=== PATIENT | female | born 1945 | race Caucasian/White ===

== ENCOUNTER 2022-06-30 15:40 | Inpatient (IN) | payer MEDICARE, OTHER ==
[~2022-06-30] VITALS: Ht 167.6 cm; Wt 119.3 kg
--- NOTE | 2022-06-30 16:00 | NUR ---
Notified [facility] to call in mid-line or PICC line nurse to place line on pt. Pt is very hard stick.
--- NOTE | 2022-06-30 16:08 | NUR ---
Patient moved to ER bed 1B with RA 105, patient was placed on continuous heart, BP & SpO2 monitors with alarms set, on & audible.
[2022-06-30] MEDS ORDERED: ZINC30OI4 TOP (16:49)
[2022-06-30] MEDS ORDERED: FLUC200T8 PO (16:49)
[2022-06-30] MEDS ORDERED: CIPR-262 PO (16:49)
[2022-06-30] MEDS ORDERED: METO25TA6 PO (16:50)
[2022-06-30] MEDS ORDERED: QUET200T PO (16:50)
[2022-06-30] MEDS ORDERED: ESCI10TA PO (16:50)
[2022-06-30] MEDS ORDERED: APIX5TAB PO (16:51)
[2022-06-30] MEDS ORDERED: LEVE500T9 PO (16:51)
[2022-06-30] MEDS ORDERED: LEVO125C4 PO (16:51)
[2022-06-30] MEDS ORDERED: IPRA3AMP22 NEB (16:53)
[2022-06-30 16:58] LABS: HEMATOCRIT 38.1 % (31.2-41.9); MEAN CORPUSCULAR HEMOGLOBIN 29.6 uug (24.7-32.8); MEAN CORPUSCULAR VOLUME 94.4 fL (75.5-95.3); PLATELET COUNT (AUTO) 87 K/uL (179-408)
[2022-06-30] MEDS ORDERED: levoFLOXacin 750 MG/D5W 150 ML PIGGYBACK IV ONE (17:00)
[2022-06-30 17:03] LABS: CHLORIDE 104 mmol/L (98-107); CREATININE 0.6 mg/dL (0.6-1.3); GLUCOSE 95 mg/dL (74-106); UREA NITROGEN, BLOOD 9 mg/dL (7-18)
[2022-06-30 17:14] LABS: CARBON DIOXIDE 43 mmol/L (21-32)
[2022-06-30 17:16] LABS: ALANINE AMINOTRANSFERASE < 6 U/L (14-59); ALKALINE PHOSPHATASE 61 U/L (50-136); ASPARTATE AMINOTRANSFERASE 12 U/L (15-37); BILIRUBIN,DIRECT < 0.1 mg/dL (0.0-0.2); BILIRUBIN,TOTAL 0.3 mg/dL (0.2-1.0); TOTAL PROTEIN, SERUM 5.9 g/dL (6.4-8.2)
[2022-06-30 17:57] LABS: BAND % (MANUAL) 1 % (0-10); EOSINOPHILS % (MANUAL) 1 % (0-8); LYMPHOCYTES % (MANUAL) 17 % (20-40); MONOCYTES % (MANUAL) 8 % (2-10); NEUTROPHILS % (MANUAL) 73 % (42-75)
[2022-06-30] MEDS ORDERED: IV NS 1000 ML 1,000 ML IV ONE (18:30)
--- NOTE | 2022-06-30 18:31 | NUR ---
Called report to EMERSON Mac.
[2022-06-30] MEDS ORDERED: levoFLOXacin 750MG/D5W 150 ML IV ONE (18:33)
--- NOTE | 2022-06-30 20:36 | NUR ---
called for bed. Patient will be admitted to [facility] room 316
[2022-06-30 20:38] LABS: *BILIRUBIN,URIN NEGATIVE (NEGATIVE); *BLOOD, URINE NEGATIVE (NEGATIVE); *CLARITY,URINE CLEAR (CLEAR); *COLOR,URINE YELLOW (YELLOW); *KETONES,URINE TRACE (NEGATIVE); *UROBILINOGEN,URINE 0.2 E.U./dl (NORMAL); LEUKOCYTE ESTERASE ,URINE TRACE (NEGATIVE); NITRITE, URINE NEGATIVE (NEGATIVE); UGLUCOSE NEGATIVE (NEGATIVE)
[2022-06-30 20:49] LABS: BACTERIA,URINE NONE SEEN /HPF (NONE SEEN); RBC,URINE NONE SEEN /HPF (0-3); SQUAMOUS EPITHELIAL CELL,UR FEW /HPF (NONE SEEN)
--- NOTE | 2022-06-30 21:30 | NUR ---
report given to Trisha NORMAN
[2022-06-30] MEDS ORDERED: ACETAMINOPHEN 325 MG TABLET PO PRN (22:15)
[2022-06-30 22:23] VITALS: BP 113/69
[2022-06-30] MEDS: QUETIAPINE FUMARATE 200 MG TABLET PO SCH (22:29)
[2022-06-30] MEDS: levETIRAcetam 500 MG TABLET PO SCH (22:29)
--- NOTE | 2022-06-30 22:30 | NUR ---
Admitted to Tele diagnosed with Pneumonia/sepsis under Dr. Marley. AAOx1, confused and forgetful. Pt screams when being touched. Complaints of generalized pain. Mostly on her neck and left shoulder. Bed bound. Unable to move any extremity. She has left eye blindness. On 3LPM sating at 96%. IV on R UA ML intact and patent. Trevizo cath draining well. All needs attended. Seizure and aspiration precaution observed.
[2022-06-30] MEDS: MORPHINE SULFATE 2 MG/1 ML DISP.SYRIN IV PRN (23:30)
--- NOTE | 2022-06-30 23:41 | NUR ---
Pt. admitted to TELE room 316 , under care of Dr. Marley Belongs List completed
[2022-07-01] VITALS: BP 103/66
[2022-07-01 04:13] VITALS: BP 119/63
[2022-07-01] MEDS: MORPHINE SULFATE 2 MG/1 ML DISP.SYRIN IV PRN ×2 (05:08→18:43)
[2022-07-01] MEDS: LEVOTHYROXINE SODIUM 125 MCG TABLET PO SCH (06:17)
[2022-07-01] MEDS ORDERED: PANTOPRAZOLE SODIUM 40 MG TABLET.DR PO SCH (07:00)
[2022-07-01 07:20] LABS: HEMATOCRIT 36.9 % (31.2-41.9); MEAN CORPUSCULAR HEMOGLOBIN 29.3 uug (24.7-32.8); MEAN CORPUSCULAR VOLUME 93.7 fL (75.5-95.3); PLATELET COUNT (AUTO) 101 K/uL (179-408)
[2022-07-01 08:40] LABS: CHLORIDE 106 mmol/L (98-107); POTASSIUM 3.6 mmol/L (3.5-5.1)
[2022-07-01 08:41] LABS: ALKALINE PHOSPHATASE 59 U/L (50-136); BILIRUBIN,TOTAL 0.3 mg/dL (0.2-1.0); PHOSPHOROUS 2.2 mg/dL (2.5-4.9); TOTAL PROTEIN, SERUM 5.6 g/dL (6.4-8.2)
[2022-07-01 08:42] LABS: ALANINE AMINOTRANSFERASE < 6 U/L (14-59); ASPARTATE AMINOTRANSFERASE 11 U/L (15-37); MAGNESIUM 2.1 mg/dL (1.8-2.4)
[2022-07-01 08:43] LABS: UREA NITROGEN, BLOOD 6 mg/dL (7-18)
[2022-07-01 08:44] LABS: CREATININE 0.4 mg/dL (0.6-1.3); GLUCOSE 85 mg/dL (74-106)
[2022-07-01 08:45] LABS: CARBON DIOXIDE 40 mmol/L (21-32)
[2022-07-01] MEDS: APIXABAN 5 MG TABLET PO SCH ×3 (09:00→20:40)
[2022-07-01] MEDS ORDERED: METOPROLOL TARTRATE 25 MG TABLET PO SCH (09:00)
[2022-07-01] MEDS: REMEDY ESSENTIAL ZINC PASTE 113 GM TP SCH ×2 (09:00→20:40)
[2022-07-01] MEDS ORDERED: LEVOTHYROXINE SODIUM 125 MCG PO SCH (09:00)
[2022-07-01 09:07] LABS: CHOLESTEROL 118 mg/dL (<200); HDL CHOLESTEROL 32 mg/dL (40-60); TRIGLYCERIDES 79 MG/DL (30-150)
[2022-07-01 09:32] LABS: THYROID STIMULATING HORMONE 0.476 mIU/mL (0.358-3.740)
[2022-07-01] MEDS: levETIRAcetam 500 MG TABLET PO SCH ×2 (10:02→20:39)
[2022-07-01] MEDS: ESCITALOPRAM OXALATE 10 MG TABLET PO SCH (10:02)
[2022-07-01 12:00] VITALS: BP 103/65
--- NOTE | 2022-07-01 12:23 | NUR ---
WOUND CARE CONSULT: PT SLEEPING SOUNDLY AT THIS TIME. REVIEWED CHART, NURSING DOCUMENTATION AND PHOTOS WHICH INDICATE RASHES AND SACRAL INTACT DEEP TISSUE INJURY, PRESENT ON ADMISSION. RECOMMENDATIONS MADE FOR SKIN PROTECTION. DISCUSSED WITH NURSING STAFF. MD IN AGREEMENT WITH PLAN OF CARE.
[2022-07-01 15:42] VITALS: BP 132/79
[2022-07-01] MEDS ORDERED: NEUTRA PHOS PACKET PO ONE (16:30)
[2022-07-01] MEDS ORDERED: FUROSEMIDE 20 MG/2 ML VIAL IV ONE (17:15)
[2022-07-01] MEDS: CLOTRIMAZOLE 1% CREAM 30 GM TUBE TOP SCH (17:16)
[2022-07-01] MEDS ORDERED: levoFLOXacin 500 MG/D5W 500 MG in PREMIXED 1 EACH IV SCH (18:00)
[2022-07-01 20:00] VITALS: BP 125/42
[2022-07-01] MEDS: QUETIAPINE FUMARATE 200 MG TABLET PO SCH (20:39)
[2022-07-01] MEDS: ALPRAZOLAM 0.5 MG TABLET PO PRN (22:34)
--- NOTE | 2022-07-01 22:35 | NUR ---
PLACED PATIENT ON CPAP 10 PER MD ORDERS. NO SOB NOTED AT THIS TIME. PATIENT SAYS SHE IS COMFORTABLE WITH MASK AND SETTINGS. WILL CONTINUE TO MONITOR.
[2022-07-02] VITALS: BP 116/78
[2022-07-02 04:00] VITALS: BP 122/80
[2022-07-02] MEDS: MORPHINE SULFATE 2 MG/1 ML DISP.SYRIN IV PRN ×2 (04:31→18:10)
[2022-07-02] MEDS: LEVOTHYROXINE SODIUM 125 MCG TABLET PO SCH (06:57)
[2022-07-02 07:08] LABS: HEMATOCRIT 36.9 % (31.2-41.9); MEAN CORPUSCULAR HEMOGLOBIN 29.8 uug (24.7-32.8); MEAN CORPUSCULAR VOLUME 91.7 fL (75.5-95.3); PLATELET COUNT (AUTO) 114 K/uL (179-408)
[2022-07-02 07:29] LABS: CREATININE 0.8 mg/dL (0.6-1.3); MAGNESIUM 1.8 mg/dL (1.8-2.4); POTASSIUM 3.2 mmol/L (3.5-5.1)
[2022-07-02] MEDS: levETIRAcetam 500 MG TABLET PO SCH ×2 (09:05→21:06)
[2022-07-02] MEDS: FAMOTIDINE 20 MG TABLET PO SCH (09:05)
[2022-07-02] MEDS: ESCITALOPRAM OXALATE 10 MG TABLET PO SCH (09:05)
[2022-07-02] MEDS: APIXABAN 5 MG TABLET PO SCH ×2 (09:06→21:10)
[2022-07-02] MEDS ORDERED: POTASSIUM CHLORIDE 20 MEQ TAB.PRT.SR PO ONE (09:15)
[2022-07-02] MEDS: REMEDY ESSENTIAL ZINC PASTE 113 GM TP SCH ×2 (09:17→21:11)
[2022-07-02] MEDS: CLOTRIMAZOLE 1% CREAM 30 GM TUBE TOP SCH ×2 (09:17→15:22)
[2022-07-02 09:19] LABS: ABG BASE EXCESS 11.4 mmol/L; ABG HCO3 38.1 mmol/L; ABG PCO2 59.1 mmHg (35.0-45.0); ABG PH 7.427 (7.350-7.450); ABG PO2 72.4 mmHg (75.0-100.0); ABG SITE RIGHT RADIAL; ABG TOTAL HEMOGLOBIN 13.4 G/dL (12.0-16.0); COHb 0.7 % (0.5-1.5); MetHb 0.1 % (0.0-1.5); O2Hb 94.4 % (94.0-97.0)
--- NOTE | 2022-07-02 11:19 | NUR ---
WOUND CARE CONSULT: PT PRESENTS WITH RASHES AND SACRAL INTACT DEEP TISSUE INJURY, PRESENT ON ADMISSION. PT IS IMMOBILE. COURTNEY MEHTA NOTED. RECOMMENDATIONS MADE FOR SKIN PROTECTION. DISCUSSED WITH NURSING STAFF. FIRST STEP LOW AIRLOSS MATTRESS IS ON ORDER. MD IN AGREEMENT WITH PLAN OF CARE. Addendum: 07/02/22 at 1120 by CHRISTINE VAZQUEZ RN Amended: Links added.
[2022-07-02] MEDS: FUROSEMIDE 40 MG TABLET PO SCH (11:52)
[2022-07-02] MEDS: METOPROLOL TARTRATE 25 MG TABLET PO SCH ×2 (11:59→21:10)
[2022-07-02 12:00] VITALS: BP 141/86
[2022-07-02] MEDS: ARGININE/GLUTAMINE/CALCIUM BMB 1 EACH POWD.PACK PO SCH (15:21)
[2022-07-02] MEDS: PROTEIN SUPPLEMENT (PROSTAT) 30 ML LIQUID PO SCH (15:22)
[2022-07-02] MEDS: GLUCERNA SHAKE 237 ML CAN PO SCH (15:22)
[2022-07-02 16:00] VITALS: BP 105/93
--- NOTE | 2022-07-02 16:30 | NUR ---
daughter and one more visitor with her were standing in to the nursing station and yelling and screaming, requested them to go out of nursing station for patient confidentiality, daughter said to this aligner typewriter that 'WHO ARE YOU" we are not going out of nursing station, called security to escort them out of nursing station.
--- NOTE | 2022-07-02 17:12 | NUR ---
patient brother called and talked to her extensively. answered all the questions appropriately.
--- NOTE | 2022-07-02 17:13 | NUR ---
patient daughter is here visiting patient and came out of the room stated she would like to get a report for her mother, daughter stated "why her mom is not on monitor, is very concerning to her" daughter seemed in angry mood because her mom is not on monitor, tired to explain however daughter is not agree with explanation.
--- NOTE | 2022-07-02 17:15 | NUR ---
patient is alert, oriented x3, verbally responsive, no sob, respirations are even nonlabored, skin warm and dry to touch, patient is stable at this time, turned repositioned, bed bath given earlier, kept clean and dry, vitals are to baseline, saturating well high 90s at 2 liter of o2. no acute distress noted.
[2022-07-02] MEDS: LEVALBUTEROL HCL NEB 0.63 MG/3 ML NEBU NEB PRN ×2 (17:39→21:10)
[2022-07-02] MEDS: IPRATROPIUM BROMIDE 0.5 MG/2.5 ML NEBU NEB PRN ×2 (17:39→21:10)
--- NOTE | 2022-07-02 18:25 | NUR ---
patient complained generalized pain, morphine offered, patient refused to have morphine for pain Addendum: 07/02/22 at 1844 by ELANA KERR RN, RN had conversation with FLORENCIO Soriano earlier this morning about giving her morphine for pain, and pulmonary recommendation of not giving morphine. per FLORENCIO sorto its ok to give her morphine small dose like 1mg for pain. Addendum: 07/02/22 at 1901 by ELANA KERR RN, RN daughter stated " my mom is taking Percocet and Dilaudid for 40years why she is not on it, I am calling doctors my self" daughter using inappropriate words toward this fiction and nonfiction prose writer.
--- NOTE | 2022-07-02 19:01 | NUR ---
spoke to HOG PUSHER Bo espino order to percocet as needed for pain, offered patient at this time, patient stated she is ok at this time, does not want to take any pain medication at this time. will endorse accordingly.
[2022-07-02 20:00] VITALS: BP 122/81
[2022-07-02] MEDS: QUETIAPINE FUMARATE 200 MG TABLET PO SCH (21:06)
[2022-07-02] MEDS: ALPRAZOLAM 0.5 MG TABLET PO PRN (22:37)
[2022-07-02] MEDS: OXYCODONE/APAP 5-325 MG TABLET PO PRN (23:42)
[2022-07-03 04:00] VITALS: BP 135/75
[2022-07-03] MEDS: LEVOTHYROXINE SODIUM 125 MCG TABLET PO SCH (06:23)
[2022-07-03] MEDS: OXYCODONE/APAP 5-325 MG TABLET PO PRN ×2 (06:26→20:47)
[2022-07-03] MEDS: LEVALBUTEROL HCL NEB 0.63 MG/3 ML NEBU NEB PRN ×2 (07:26→12:44)
[2022-07-03] MEDS: IPRATROPIUM BROMIDE 0.5 MG/2.5 ML NEBU NEB PRN ×2 (07:26→12:44)
[2022-07-03 07:30] LABS: HEMATOCRIT 43.4 % (31.2-41.9); MEAN CORPUSCULAR HEMOGLOBIN 29.2 uug (24.7-32.8); MEAN CORPUSCULAR VOLUME 91.4 fL (75.5-95.3); PLATELET COUNT (AUTO) 143 K/uL (179-408)
[2022-07-03 07:41] LABS: CREATININE 0.7 mg/dL (0.6-1.3); PHOSPHOROUS 3.1 mg/dL (2.5-4.9); POTASSIUM 3.4 mmol/L (3.5-5.1)
[2022-07-03 09:19] LABS: ABG BASE EXCESS 6.4 mmol/L; ABG HCO3 32.6 mmol/L; ABG PCO2 53.2 mmHg (35.0-45.0); ABG PH 7.405 (7.350-7.450); ABG PO2 58.4 mmHg (75.0-100.0); ABG SITE RIGHT RADIAL; ABG TOTAL HEMOGLOBIN 13.8 G/dL (12.0-16.0); COHb 0.9 % (0.5-1.5); MetHb 0.2 % (0.0-1.5); VENT MODE Nasal Cannula
[2022-07-03] MEDS ORDERED: POTASSIUM CHLORIDE 50 ML IV SCH (09:30)
--- NOTE | 2022-07-03 09:30 | NUR ---
DR MON HERE AND SEEN PATIENT WITH NEW ORDERS AND NOTED WILL ATTEMPT TO TITRATE O2 TO ONE LITER AND SEE IF SHE TOLERATES.
[2022-07-03] MEDS: levETIRAcetam 500 MG TABLET PO SCH ×2 (09:49→20:29)
[2022-07-03] MEDS: ESCITALOPRAM OXALATE 10 MG TABLET PO SCH (09:49)
[2022-07-03] MEDS: FAMOTIDINE 20 MG TABLET PO SCH (09:49)
[2022-07-03] MEDS: FUROSEMIDE 40 MG TABLET PO SCH (09:49)
[2022-07-03] MEDS: METOPROLOL TARTRATE 25 MG TABLET PO SCH ×2 (09:50→20:34)
[2022-07-03] MEDS: REMEDY ESSENTIAL ZINC PASTE 113 GM TP SCH ×2 (09:51→21:11)
[2022-07-03] MEDS: CLOTRIMAZOLE 1% CREAM 30 GM TUBE TOP SCH ×2 (09:51→17:51)
[2022-07-03] MEDS: APIXABAN 5 MG TABLET PO SCH ×2 (09:52→20:35)
[2022-07-03] MEDS: GLUCERNA SHAKE 237 ML CAN PO SCH ×2 (09:53→17:51)
[2022-07-03] MEDS: ARGININE/GLUTAMINE/CALCIUM BMB 1 EACH POWD.PACK PO SCH (09:53)
[2022-07-03] MEDS: PROTEIN SUPPLEMENT (PROSTAT) 30 ML LIQUID PO SCH (09:53)
--- NOTE | 2022-07-03 10:38 | NUR ---
DR ESPINO HERE SEEN PATIENT WITH ORDER TO RESTART PATIENT ON TELEMETRY ALSO POTASSIUM LEVEL IS 3.4 WITH NEW REPLACEMENT ORDERS AND NOTED
--- NOTE | 2022-07-03 11:07 | NUR ---
POTASSIUM IS IN PROGRESS AND PATIENT IS IN PAIN UNABLE TO TOLERATE DESPITE ICE COMPRESS APPLICATION PHARMACY NOTIFIED WITH NEW ORDERS AND NOTED
[2022-07-03] MEDS ORDERED: POTASSIUM CHLORIDE 10 MEQ TAB.PRT.SR PO ONE ×2 (11:15→12:45)
[2022-07-03 11:17] VITALS: BP 108/63
[2022-07-03] MEDS ORDERED: ALPRAZOLAM 0.25 MG TABLET PO PRN (12:00)
[2022-07-03 15:13] VITALS: BP 114/79
[2022-07-03 15:30] VITALS: BP 114/79
--- NOTE | 2022-07-03 18:00 | NUR ---
PATIENT SEEN AND EXAMINED BY YULISA HENLEY WITH NO NEW ORDERS AT THIS TIME STATED TO AVOID GIVING PATIENT ANY NARCOTICS SHE IS SOMEWHAT SLEEPY TODAY COMPARED TO YESTERDAY AND NOTED
[2022-07-03 20:00] VITALS: BP 133/90
[2022-07-03] MEDS: QUETIAPINE FUMARATE 200 MG TABLET PO SCH (20:29)
[2022-07-04 04:00] VITALS: BP 120/64
[2022-07-04] MEDS: LEVOTHYROXINE SODIUM 125 MCG TABLET PO SCH (06:05)
--- NOTE | 2022-07-04 06:28 | NUR ---
Complained of pain on neck, shoulders, sacrum, right arm and both legs. Percocet given. Slept intermittently. On CPAP at night, able to tolerate from 11-3am. Wound treatment done as ordered. Air mattress placed. Trevizo cath intact and draining well. All needs attended. Safety and seizure precaution maintained. Will endorse to incoming shift.
[2022-07-04] MEDS ORDERED: POTASSIUM CHLORIDE 20 MEQ TAB.PRT.SR PO SCH (08:30)
[2022-07-04] MEDS: ARGININE/GLUTAMINE/CALCIUM BMB 1 EACH POWD.PACK PO SCH (09:00)
[2022-07-04] MEDS: PROTEIN SUPPLEMENT (PROSTAT) 30 ML LIQUID PO SCH (10:00)
[2022-07-04] MEDS: METOPROLOL TARTRATE 25 MG TABLET PO SCH ×2 (10:04→20:35)
[2022-07-04] MEDS: levETIRAcetam 500 MG TABLET PO SCH ×2 (10:04→20:34)
[2022-07-04] MEDS: FUROSEMIDE 40 MG TABLET PO SCH (10:04)
[2022-07-04] MEDS: ESCITALOPRAM OXALATE 10 MG TABLET PO SCH (10:04)
[2022-07-04] MEDS: FAMOTIDINE 20 MG TABLET PO SCH (10:04)
[2022-07-04] MEDS: APIXABAN 5 MG TABLET PO SCH ×2 (10:05→20:34)
[2022-07-04] MEDS: GLUCERNA SHAKE 237 ML CAN PO SCH ×2 (10:10→18:15)
[2022-07-04] MEDS: CLOTRIMAZOLE 1% CREAM 30 GM TUBE TOP SCH ×2 (10:11→18:15)
[2022-07-04] MEDS: REMEDY ESSENTIAL ZINC PASTE 113 GM TP SCH ×2 (10:12→20:36)
[2022-07-04 11:03] VITALS: BP 142/81
[2022-07-04] MEDS: OXYCODONE/APAP 5-325 MG TABLET PO PRN ×3 (12:38→18:35)
[2022-07-04 16:14] VITALS: BP 91/60
[2022-07-04] MEDS ORDERED: POTASSIUM CHLORIDE 20 MEQ TAB.PRT.SR PO ONE ×2 (17:00→18:30)
--- NOTE | 2022-07-04 19:30 | NUR ---
Received patient sitting upright in bed. AAOx1-2 with confusion. In no apparent distress. Denies any pain or SOB. O2 at 1LPM via NC in place. O2 sat at 94%. Sinus rhythm with BBB on tele with HR of 72/min. IV site on right arm intact and patent. Needs assessed and attended to. Safety measure initiated and call light within reached.
[2022-07-04] MEDS: QUETIAPINE FUMARATE 200 MG TABLET PO SCH (20:34)
[2022-07-04 20:48] VITALS: BP 98/58
[2022-07-05 00:30] VITALS: BP 96/56
[2022-07-05 04:50] VITALS: BP 106/67
[2022-07-05] MEDS: LEVOTHYROXINE SODIUM 125 MCG TABLET PO SCH (06:06)
--- NOTE | 2022-07-05 06:19 | NUR ---
BIPAP used during the night while asleep. Sinus rhythm with BBB on tele with HR of 70/min.Needs attended to and met. Turned and reposition for comfort. Safety measure maintained and call light within reached.
[2022-07-05] MEDS: GLUCERNA SHAKE 237 ML CAN PO SCH (08:14)
[2022-07-05] MEDS: ESCITALOPRAM OXALATE 10 MG TABLET PO SCH (08:14)
[2022-07-05] MEDS: FAMOTIDINE 20 MG TABLET PO SCH (08:14)
[2022-07-05] MEDS: FUROSEMIDE 40 MG TABLET PO SCH (08:14)
[2022-07-05] MEDS: PROTEIN SUPPLEMENT (PROSTAT) 30 ML LIQUID PO SCH (08:14)
[2022-07-05] MEDS: levETIRAcetam 500 MG TABLET PO SCH (08:15)
[2022-07-05] MEDS: METOPROLOL TARTRATE 25 MG TABLET PO SCH (08:15)
[2022-07-05] MEDS: ARGININE/GLUTAMINE/CALCIUM BMB 1 EACH POWD.PACK PO SCH (08:15)
[2022-07-05] MEDS: APIXABAN 5 MG TABLET PO SCH (08:15)
[2022-07-05] MEDS: REMEDY ESSENTIAL ZINC PASTE 113 GM TP SCH (09:33)
[2022-07-05] MEDS: CLOTRIMAZOLE 1% CREAM 30 GM TUBE TOP SCH (09:33)
[2022-07-05 10:49] VITALS: BP 96/59
[2022-07-05] MEDS ORDERED: ALBUTEROL SULFATE 1.25 MG/3 ML NEBU NEB PRN (11:45)
[2022-07-05] MEDS ORDERED: Oxycodone/Apap 5-325 Mg PO (12:31)
[2022-07-05] MEDS ORDERED: ALPR0.25 PO (12:31)
[2022-07-05] MEDS ORDERED: FURO40TA5 PO (12:31)
[2022-07-05 12:54] LABS: HEMATOCRIT 42.5 % (31.2-41.9); MEAN CORPUSCULAR HEMOGLOBIN 29.4 uug (24.7-32.8); MEAN CORPUSCULAR VOLUME 91.9 fL (75.5-95.3); PLATELET COUNT (AUTO) 171 K/uL (179-408)
[2022-07-05 13:07] LABS: CREATININE 0.7 mg/dL (0.6-1.3); MAGNESIUM 2.1 mg/dL (1.8-2.4); PHOSPHOROUS 3.5 mg/dL (2.5-4.9); POTASSIUM 4.1 mmol/L (3.5-5.1)
--- NOTE | 2022-07-05 14:07 | NUR ---
PT REFUSED TO TAKE THE WOUND PICTURE PT IS SCREAMING ON THE NURSE REFUSED TO TURN MD AND CHARGE NURSE MADE AWARE
--- NOTE | 2022-07-05 15:25 | NUR ---
dc orders received noted and carried out.dc instruction and rn report given to the usp rn pt left the facility via ambulances in stable condition
== END 2022-07-05 15:36 | DRG 917 ==
LOC: ER 15:40 → TELE3 21:38 → MEDSURG3 07-02 10:30 → TELE3 07-03 11:30
PROVIDERS: ADMIT Internal Medicine; ATTEND Nurse Practitioner Family
PROC: 5A09357 Assistance with Respiratory Ventilation, Less than 24 Consecutive Hours, Continuous Positive Airway Pressure (ICD-10-PCS; principal; 2022-07-02)
DX: T42.4X1A Poisoning by benzodiazepines, accidental (unintentional), initial encounter (principal); G92.8 Other toxic encephalopathy; J96.22 Acute and chronic respiratory failure with hypercapnia; J96.21 Acute and chronic respiratory failure with hypoxia; I50.33 Acute on chronic diastolic (congestive) heart failure; D68.59 Other primary thrombophilia; E66.2 Morbid (severe) obesity with alveolar hypoventilation; J98.11 Atelectasis; Z68.41 Body mass index [BMI] 40.0-44.9, adult; K51.90 Ulcerative colitis, unspecified, without complications; Z20.822 Contact with and (suspected) exposure to COVID-19; D64.9 Anemia, unspecified; D69.6 Thrombocytopenia, unspecified; E03.9 Hypothyroidism, unspecified; G89.4 Chronic pain syndrome; I25.10 Atherosclerotic heart disease of native coronary artery without angina pectoris; K21.9 Gastro-esophageal reflux disease without esophagitis; M06.9 Rheumatoid arthritis, unspecified; Z79.01 Long term (current) use of anticoagulants; Z86.73 Personal history of transient ischemic attack (TIA), and cerebral infarction without residual deficits; Z87.440 Personal history of urinary (tract) infections; Z87.442 Personal history of urinary calculi; I11.0 Hypertensive heart disease with heart failure; I48.0 Paroxysmal atrial fibrillation; G40.909 Epilepsy, unspecified, not intractable, without status epilepticus; R13.10 Dysphagia, unspecified; H40.9 Unspecified glaucoma; H54.62 Unqualified visual loss, left eye, normal vision right eye; H91.90 Unspecified hearing loss, unspecified ear; F01.50 Vascular dementia, unspecified severity, without behavioral disturbance, psychotic disturbance, mood disturbance, and anxiety; F31.9 Bipolar disorder, unspecified; R53.1 Weakness; Z88.0 Allergy status to penicillin; Z88.2 Allergy status to sulfonamides; M51.36 Other intervertebral disc degeneration, lumbar region; N20.0 Calculus of kidney; N13.9 Obstructive and reflux uropathy, unspecified; Z99.81 Dependence on supplemental oxygen; I71.21 Aneurysm of the ascending aorta, without rupture; Z88.1 Allergy status to other antibiotic agents; Z79.890 Hormone replacement therapy; Z90.710 Acquired absence of both cervix and uterus; Y92.129 Unspecified place in nursing home as the place of occurrence of the external cause; J44.9 Chronic obstructive pulmonary disease, unspecified
CPT/HCPCS: 36415; 36600; 70030-TC; 70450; 71045; 71250; 82747; 83605; 83735; 84100; 84443; 84484; 85014; 85025; 85730; 87040; 87086; 93005; 93307; 94640; 94660; 94664; A4663; A6209; A6213; G0378; J1940; J1956; J2270; J3480; J3590; J7040; J7614